=== PATIENT | female | born 1950 | race Caucasian/White ===

== ENCOUNTER 2020-12-21 10:38 | Outpatient (CLI) | payer MEDICARE, SELFPAY ==
--- NOTE | ~2020-12-21 | XR_ITS ---
EXAMINATION: XR knee RT 3V DATE: 12/21/2020 10:58 INDICATION: Right knee pain. TECHNIQUE: 3 views of right knee including standing views were obtained. COMPARISON: None. FINDINGS: Bone alignment is normal. No fracture. There is moderate osteoarthritis of lateral compartm ent and mild osteoarthritis of medial and patellofemoral compartments. There is a large knee joint ef fusion. IMPRESSION: 1. Moderate right knee osteoarthritis. 2. Large right knee joint effusion. Reviewed, dictated and finalized at location A.
== END 2020-12-21 10:39 | disposition home or self-care (01) ==
LOC: ANHIMG 10:39
PROVIDERS: PCP Family Medicine
DX: M17.11 Unilateral primary osteoarthritis, right knee (principal); M25.461 Effusion, right knee
CPT/HCPCS: 73562

== ENCOUNTER 2021-05-11 12:44 | Outpatient (CLI) | payer MEDICARE, SELFPAY ==
--- NOTE | ~2021-05-11 | CT_ITS ---
EXAMINATION: CT chest abdomen pelvis w con DATE: 05/11/2021 13:42 INDICATION: Abnormal weight loss TECHNIQUE: Computed tomography (CT) of the chest, abdomen, and pelvis was performed with 100 mL Omnip aque-350 intravenous contrast. Automated exposure control and iterative reconstruction technique were employed. The dose-length product was 233.73 mGy-cm. COMPARISON: 12/12/2012 FINDINGS: CHEST CT: Moderate to severe emphysema. 4 mm flat triangular intrafissural lymph node along the left major fiss ure. No other suspicious pulmonary nodules, pneumonia, pulmonary edema or pleural effusion. Heart siz e is normal. Atherosclerotic coronary artery calcific location. No pericardial effusion. Thoracic aor ta is normal in caliber with no dissection. No pathologically enlarged thoracic lymphadenopathy. [employer] santi T8 compression fracture with 20% anterior vertebral body height loss. ABDOMEN/PELVIS CT: Focal hepatic steatosis at the ligamentum teres. 4 mm cyst in the left hepatic lobe. Suggestion of a tiny 2-3 mm gallstone at the dependent aspect of the otherwise normal-appearing gallbladder. Pancreas , spleen, bilateral adrenal glands and right kidney are normal. 2.1 cm exophytic cyst at the lower po le of the left kidney. There is mild colonic diverticulosis with a sigmoid and descending colon predo minance. There is no adjacent inflammatory change to suggest diverticulitis. No bowel obstruction. No rmal appendix. Bladder is normal. The uterus is not identified and has likely been surgically resecte d. No free intraperitoneal gas or fluid. No pathologically enlarged abdominal or pelvic lymphadenopat hy. There is calcified atherosclerosis of the aorta and bilateral iliac arteries. Interval progressio n of a chronic L1 burst fracture with 40% anterior vertebral body height loss and 4 mm retropulsion r esulting in mild central canal stenosis as level. Mild lumbar spondylosis. IMPRESSION: 1. No lesion suspicious for malignancy are evident acute process in the chest, abdomen or pelvis. 2. Moderate to severe emphysema. 3. Likely cholelithiasis. 4. Mild diverticulosis. Reviewed, dictated and finalized at location A.
--- NOTE | ~2021-05-11 | CT_ITS ---
EXAMINATION: CT brain wo con DATE: 05/11/2021 13:43 INDICATION: Abnormal weight loss. TECHNIQUE: Computed tomography (CT) of the head was performed without intravenous contrast. The dose- length product was 605.33 mGy-cm. Automated exposure control and iterative reconstruction technique w ere employed. COMPARISON: No prior studies for comparison. FINDINGS: Brain parenchymal volume is normal for age. Normal morales-white differentiation. There are sc attered mild periventricular and subcortical white matter changes, most likely related to small vesse l ischemic disease (microangiopathy). No ventriculomegaly or midline shift. Paranasal sinuses and mas toids are pneumatized. No depressed skull fractures. IMPRESSION: 1. No acute intracranial abnormality. 2: Chronic age-related findings. Reviewed, dictated and finalized at location B.
[2021-05-11 13:34] LABS: Estimated Glomerular Filt Rate > 60
== END 2021-05-11 12:45 | disposition home or self-care (01) ==
PROVIDERS: PCP Family Medicine; Visit Provider Family Medicine
DX: R63.4 Abnormal weight loss (principal); S32.011A Stable burst fracture of first lumbar vertebra, initial encounter for closed fracture; R41.82 Altered mental status, unspecified; K76.0 Fatty (change of) liver, not elsewhere classified; K76.89 Other specified diseases of liver; K57.30 Diverticulosis of large intestine without perforation or abscess without bleeding
CPT/HCPCS: 70450; 71260; 74177; Q9967

== ENCOUNTER 2021-10-02 08:50 | Outpatient (CLI) | payer MEDICARE, SELFPAY ==
--- NOTE | ~2021-10-02 | XR_ITS ---
XR hand BI arthritis min 3V DATE: 10/02/2021 10:06 INDICATION: Bilateral hand pain. Rheumatoid arthritis. TECHNIQUE: 4 views of each hand. COMPARISON: None FINDINGS: Right hand: Osteopenia. There is severe osteoarthritic change at the first carpometacarpal joint. There is osteoarthritic debra nge at some interphalangeal joints including distal interphalangeal joints of second and third digits . No erosive change is noted. No fracture, dislocation, periosteal reaction or bone destruction. Left hand: Osteopenia. There is severe osteoarthritic change at the first carpometacarpal joint and osteoarthritic change at some interphalangeal joints, most prominent at the distal interphalangeal joints of the second and t hird digits. No fracture or dislocation, periosteal reaction or bone destruction. No erosive change is noted. IMPRESSION: Osteopenia Polyarticular osteoarthritis, particularly severe at bilateral first carpometacarpal joints Reviewed, dictated and finalized at location B. IMPRESSION: Osteopenia Polyarticular osteoarthritis, particularly severe at bilateral first carpometac arpal joints
--- NOTE | ~2021-10-02 | XR_ITS ---
XR foot RT standing 2V DATE: 10/02/2021 10:05 INDICATION: Right foot pain. Rheumatoid arthritis. TECHNIQUE: Standing AP and lateral views COMPARISON: None FINDINGS: There is prominent hallux valgus and bunion deformity. There is mild osteoarthritis at the first metatarsophalangeal joint. Prominent posterior calcaneal spur. No fracture, dislocation, periosteal reaction or bone destruction. Osteopenia. IMPRESSION: Prominent hallux valgus and bunion deformity Mild osteoarthritis at first metatarsophalangeal joint Posterior calcaneal enthesopathy Osteopenia Reviewed, dictated and finalized at location B.
--- NOTE | ~2021-10-02 | XR_ITS ---
XR foot LT standing 2V DATE: 10/02/2021 10:06 INDICATION: Left foot pain. Rheumatoid arthritis. TECHNIQUE: Standing AP and lateral views COMPARISON: None FINDINGS: There is osteopenia. Plantar and posterior calcaneal enthesopathy, without associated erosive change or periostitis. Mild hallux valgus and bunion deformity. No fracture or dislocation, periosteal reaction or bone destruction is detected. No erosive change is noted. IMPRESSION: Plantar and posterior calcaneal enthesopathy Mild hallux valgus and bunion deformity Osteopenia Reviewed, dictated and finalized at location B.
[2021-10-02 09:53] LABS: Hematocrit 37.9 % (37.0-47.0); Hemoglobin 11.7 g/dL (12.0-15.0); Mean Corpuscular HGB Conc 30.9 g/dl (32-36); Mean Corpuscular Hemoglobin 29.4 pg (26-34); Mean Corpuscular Volume 95.2 fl (80-100); Mean Platelet Volume 9.5 fl (7.4-10.4); Platelet Count Result 334 k/mm3 (150-375); Red Blood Count 3.98 M/mm3 (4.2-5.4); Red Cell Distribution Width 16.3 % (11.5-14.5)
[2021-10-02 10:10] LABS: Appearance Urine Slightly Cloudy (Clear); Bilirubin Urine Negative (Negative); Blood Urine Negative (Negative); Color Urine Yellow (Yellow); Glucose Urine UA Negative (Negative); Ketones Urine Negative (Negative); Leukocyte Esterase Ur Negative LEU/UL (Negative); Nitrate Urine Negative (Negative); Protein Urine Negative (Negative); Specific Grav Ur 1.015 (1.001-1.035); Urobilinogen Urine 0.2 mg/dL (<2.0)
[2021-10-02 10:16] LABS: Alanine Aminotransferase 17 U/L (6-35); Albumin Level 4.1 g/dL (3.5-5.1); Alkaline Phosphatase 87 U/L (38-126); Anion Gap 8 mmol/L (8-16); Aspartate Amino Transferase 25 U/L (14-36); Bilirubin,Total 0.7 mg/dL (0.2-1.3); Blood Urea Nitrogen 9 mg/dL (7-17); CRP < 0.5 mg/dL (<1.0); Calcium 9.6 mg/dL (8.4-10.2); Carbon Dioxide 30 mmol/L (22-30); Chloride 101 mmol/L (98-107); Estimated Glomerular Filt Rate > 60; Glucose 97 mg/dL (65-110); Potassium 4.1 mmol/L (3.4-5.0); Sodium 139 mmol/L (137-145)
[2021-10-02 10:18] LABS: RBC Urine 0-2 /hpf (0-2); Squamous Epithelial Cell Urine Rare /hpf (Few); WBC Urine 0-3 /hpf
[2021-10-02 10:26] LABS: Add Urine Microscopic? YES
[2021-10-02 11:21] LABS: Erythrocyte Sedimentation Rate 40 mm/hr (0-20)
[2021-10-02 13:00] LABS: Rheumatoid Factor 88.4 IU/ML (<12)
[2021-10-04 15:46] LABS: NIL 0.01 IU/mL; Quantiferon TB Plus, 1T NEGATIVE (NEGATIVE)
[2021-10-05 21:50] LABS: Anti Cyclic Citrullinated Pept >250 Units (<20)
== END 2021-10-02 08:51 | disposition home or self-care (01) ==
LOC: ANHLAB 08:59
PROVIDERS: PCP Family Medicine; Visit Provider Internal Medicine
DX: M06.9 Rheumatoid arthritis, unspecified (principal); M15.9 Polyosteoarthritis, unspecified; M81.0 Age-related osteoporosis without current pathological fracture; Z71.89 Other specified counseling; Z79.899 Other long term (current) drug therapy; M19.90 Unspecified osteoarthritis, unspecified site; M05.79 Rheumatoid arthritis with rheumatoid factor of multiple sites without organ or systems involvement
CPT/HCPCS: 36415; 73130; 73620; 80053; 81001; 85027; 85652; 86038; 86039; 86140; 86200; 86430; 86480